=== PATIENT | male | born 1980 | race Two or more races ===

== ENCOUNTER 2019-09-15 20:33 | Emergency (ER) | payer MEDICAID ==
[~2019-09-15] VITALS: Ht 172.7 cm; Wt 108.2 kg
[~2019-09-15 20:33] MED LIST: ONDA4TAB12 PO
[2019-09-15] MEDS ORDERED: HYDROcodone/acetaminophen 10/325mg tab PO ONE (21:35)
[2019-09-15] MEDS ORDERED: rabies vaccine (PCEC)/PF 2.5 unit kit IMVAC ONE (21:40)
[2019-09-15] MEDS ORDERED: rabies immune globulin/PF 150 unit/ml inj IMVAC ONE (21:40)
[2019-09-15] MEDS ORDERED: amox tr/potassium clavulanate 875/125mg TAB PO ONE (21:40)
[2019-09-15] MEDS ORDERED: TETanus/Pertussis (Acell)/Diphther VAC/PF (Tdap-Adult) 0.5ml syringe IMVAC ONE (21:40)
[2019-09-15] MEDS ORDERED: LIDOcaine 1% W/epiNEPHrine 1:200,000 10ml vial IJ ONE (21:40)
[2019-09-15] MEDS ORDERED: IBUP-1984 PO (22:18)
[2019-09-15] MEDS ORDERED: AMOX-117 PO (22:18)
[2019-09-15] MEDS ORDERED: ACET-2119 PO (22:38)
[2019-09-15 23:23] VITALS: BP 146/109
== END 2019-09-15 23:25 | disposition home or self-care (01) ==
LOC: ER 20:34
DX: S51.832A Puncture wound without foreign body of left forearm, initial encounter (principal); S61.234A Puncture wound without foreign body of right ring finger without damage to nail, initial encounter; Z86.14 Personal history of Methicillin resistant Staphylococcus aureus infection; Z87.442 Personal history of urinary calculi; Z88.5 Allergy status to narcotic agent; Z79.2 Long term (current) use of antibiotics; Z79.899 Other long term (current) drug therapy; W54.0XXA Bitten by dog, initial encounter; Y93.01 Activity, walking, marching and hiking; Y92.89 Other specified places as the place of occurrence of the external cause; Y99.8 Other external cause status
CPT/HCPCS: 73090; 73140; 90471; 90675; 90715; 99283; 99284